=== PATIENT | male | born 1950 | race Caucasian/White ===

== ENCOUNTER 2025-02-17 12:02 | Outpatient (CLI) | payer OTHER, SELFPAY ==
[2025-02-17 12:02] VITALS: BMI 29.5
--- OUTSIDE RECORDS SUMMARY | 2025-02-17 12:17 | XMS_ITS | Encounter Summary ---
Author Organization Healthcare Address [address] [place] [address] Care Team Providers Care Service Associate Name Role Phone Kelly Hill APRN Primary Care Provider [phone] Reason for Visit * Reason Comments Med Refill Encounter Details Date Type Department Care Team (Late st Contact Info) Description 12/23/2024 Refill Family [facility] [address] [place] [address] Kelly Hill APRN [address] [place] [address] Social History Tobacco Use Types Packs/Day Years Used Date Smoking Tobacco: Former Cigarettes 0.3 20 1 970 - 1989 Passive Smoke Exposure: Current Smokeless Tobacco: Never Alcohol Use Standard Drinks/Week Comments Never 0 (1 standard drink = 0.6 oz pur e alcohol) Humiliation, Afraid, Rape, and Kick questionnair e Answer Date Recorded Within the last year, have y ou been afraid of your partner or ex-partner? No 12/15/2023 Within the last year, have y ou been humiliated or emotionally abused in other ways by your partner or ex-partner? No Within the last year, have y ou been kicked, hit, slapped, or otherwise physically hurt by your partner or ex-partner? No 12/15/2023 Within the last year, have y ou been raped or forced to have any kind of sexual activity by your partner or ex-partner? No 12/15/2023 PHQ-2 Answer Date Recorded Patient Health Questionnaire-2 Score 0 04/18/2024 Hunger Vital Sign Answer Date Recorded Within the past 12 months, y ou worried that your food would run out before you got the money to buy more. Never true 12/15/19 24 Within the past 12 months, t he food you bought just didn't last and you didn't have money to get more. Never true 12/15/2023 PRAPARE - Transportation Answer Date Re corded In the past 12 months, has l ack of transportation kept you from medical appointments or from getting medications? No 10/2023 In the past 12 months, has l ack of transportation kept you from meetings, work, or from getting things needed for daily living? No 12/15/2023 Housing Stability Vital Sign Answer Gwyn e Recorded In the last 12 months, was t here a time when you were not able to pay the mortgage or rent on time? No 12/15/2023 In the last 12 months, how many places have you lived? 1 12/15/2023 In the last 12 months, was t here a time when you did not have a steady place to sleep or slept in a skilled nursing (including now)? No 12/15/2023 Utilities Answer Date Recorded In the past 12 months has th e [employer], gas, oil, or water company threatened to shut off services in your home? No 12/15/2023 PHQ-2A Answer Date Recorded Patient Health Questionnaire-2 Score 0 12/23/2022 Sex and Gender Information Value Date Recorded Sex Assigned at Not on file Legal Sex Male 6:30 PM EDT Gender Identity Not on file Sexual Orientation Not on file documented as of this encounter Miscellaneous Notes * Telephone Encounter - Emily Noble, PharmD - 12/27/2024 8:37 AM EDT 1 medication(s) has been approved per protocol. documented in this encounter Plan of Treatment Not on file documented as of this encounter Visit Diagnoses Not on filedocumented in this encounter Additional Health Concerns Assessment Noted Time A fall risk assessment has been complete d for the patient 04/18/2024 2:35 PM EDT A Body Mass Index follow-up plan has been documented for the patient 04/18/2024 2:53 PM EDT documented as of this encounter Care Teams Service Associate Relationship Specialty Start Date End Date Kelly Hill APRN [address] [place] [phone] PCP - General 01/25/21 documented as of this encounter
--- OUTSIDE RECORDS SUMMARY | 2025-02-17 12:17 | XMS_ITS | Clinical Summary ---
Author Organization Healthcare Address [address] [place] [address] Care Team Providers Care Asthma Educator Name Role Phone Kelly Hill APRN Primary Care Provider Allergies No known active allergies Medications fexofenadine (Yesenia) 60 MG tablet Take 1 tablet (60 mg) by mouth 1 (one) time each day. Active Multiple Vitamin (multivitamin) capsule Take 1 capsule by mouth 1 (one) time each day. Active diclofenac (Voltaren) 75 MG EC tablet TAKE 1 TABLET BY MOUTH TWICE A DAY DO NOT CRUSH CHEW OR SPLIT 180 tablet 12/27/2024 Active Active Problems Problem Noted Date Diagnosed Date Chronic back pain 01/14/2021 Ulcer of left lower leg 01/14/2021 Function kidney decreased 12/18/2020 Encounters Date Type Department Care Team Description 02/15/2025 Orders Only External Location [address] [place] [address] [place] 12/23/2024 Refill Family [facility] [address] [place] [id number] Kelly Hill APRN from Last 3 Months Immunizations Immunization Administration Dates Next Due Influenza, high-dose, quadrivalent 07/12/2020 Rsvpref, Recombinant, Protein Subunit, Adjuvent 09/22/2023 Family History Medical History Relation Name Comments Colon cancer Father Conversions - Other Father Prostate hypertrophy Breast cancer Mother Relation Name Status Comments Father Mother Social History Tobacco Use Types Packs/Day Years Used Date Smoking Tobacco: Former Cigarettes 0.3 20 1 0 - 1989 Passive Smoke Exposure: Current Smokeless Tobacco: Never Tobacco Cessation:Counseling Given: Not Answered Alcohol Use Standard Drinks/Week Comments Never 0 [...] place to sleep or slept in a nursing home (including now)? No 12/15/2023 Utilities Answer Date Recorded In the past 12 months has e [employer], gas, oil, or water company threatened to shut off services in your home? No 12/15/2023 PHQ-2A Answer Date Recorded Patient Health Questionnaire-2 Score 0 12/23/2022 Sex and Gender Information Value Date Recorded Sex Assigned at Not on file Legal Sex Male 6:30 PM EDT Gender Identity Not on file Sexual Orientation Not on file Last Filed Vital Signs Vital Sign Reading Time Taken Comments Blood Pressure 110/78 04/18/2024 2:26 PM EDT Pulse 81 04/18/2024 2:26 PM EDT Temperature 36.8 C (98.2 F) 04/18/2024 2:26 PM EDT Respiratory Rate 16 10/28/2022 7:40 AM EST Oxygen Saturation 93% 04/18/2024 2:26 PM EDT Inhaled Oxygen Concentration - - Weight 94.2 kg (207 lb 11.2 oz) 04/18/2024 2:26 PM EDT Height 170.2 cm (5' 7 ) 04/18/2024 2:26 PM EDT Body Mass Index 32.53 04/18/2024 2:26 PM EDT Plan of Treatment Health Maintenance Due Date Last Done Comments [facility]-Hepatitis C Screening 1950 [facility]-Medicare Annual Wellness (AWV) 1950 [facility]-Infant/Child/Adol SDOH Screenings 1950 [facility]- SDOH Screenings 1970 [facility]-Adult SDOH Screenings 1970 [facility]-DTaP,Tdap,and Td Vaccines (1 - Tdap) 1971 CT Colonography 1997 Colonoscopy 1997 FIT 1997 FOBT 1997 Sigmoidoscopy 1997 [facility]-Zoster Vaccines (1 of 2) 2002 [facility]-Abdominal Aortic Aneurysm (AAA) Screening 2017 [id number] Vaccine ( season) 2024 12/28/2020, 11/30/2020 [facility]-Depression Screening 04/18/2025 04/18/2024 [facility]-Influenza Vaccine (Season Ended) 2025 07/12/2020 FIT-DNA 12/20/2026 12/21/2023 [facility]-Colorectal Cancer Screening 12/20/2026 [facility]-RSV Vaccine: 60+ Years or Completed 09/22/2023 [facility]-Pneumococcal Vaccine: 50+ Years Completed 02/12/2024 [facility]-Obesity Intervention Completed 024, 12/15/2023, 12/23/2022, Additional history exists HPV Vaccines Aged Out No longer eligi ble based on patient's age to complete this topic [facility]-HIB Vaccines Aged Out No longer e ligible based on patient's age to complete this topic [facility]-Hepatitis A Vaccines Aged Out No longer eligible based on patient's age to complete this topic [facility]-IPV Vaccines Aged Out No longer e ligible based on patient's age to complete this topic [facility]-Rotavirus Vaccines Aged Out No lo nger eligible based on patient's age to complete this topic Procedures Procedure Name Priority Date/Time Associated Diagnosis Comments CULTURE, BODY FLUID (EXTERNAL) Routine 02/15/2025 8:55 AM EDT BODY FLUID CELL COUNT MANUAL DIFF (NON-WAM) Routine 02/15/2025 8:55 AM EDT ANAEROBIC CULTURE Routine 02/15/2025 8:5 5 AM EDT GRAM STAIN Routine 02/15/2025 8:55 AM EDT LAB COLOGUARD COLON CANCER SCREEN Routine 12/21/2023 8:00 AM EDT Screening for colon cancer from Last 3 Months or Most Recently Relevant to Health Maintenance Results * Gram stain (02/15/2025 8:55 AM EDT) External Specimen Source SYNOVIAL [facility] External Gram Stain ID #1 POSITIVE [facility] External Morphology COCCI CLUSTERS [facility] External Quantitation #1 RARE [facility] External Gram Stain ID #2 POSITIVE [facility] External Morphology COCCI PAIRS [facility] External Quantitation #2 RARE [facility] External White Blood Cells MANY [facility] External Epithelial Cells NONE SEEN [facility] External Yeast NO YST SEEN [facility] EXTERNAL GRAM POSITIVE QC SLIDE PASS PASS [facility] EXTERNAL GRAM NEGATIVE QC SLIDE PASS PASS [facility] Synovium, biopsy or resection 02/15/2025 8:55 AM EDT 02/15/2025 11:46 AM EDT us Generic [place] Provider LAB MICROBIOLOGY - G ENERAL ORDERABLES Final Result Performing Organization Address City/[facility]/ZIP Co de Phone Number [facility] * (ABNORMAL) Body Fluid Cell Count w/ Diff (02/15/2025 8:55 AM EDT) External Specimen Source SYNOVIAL [facility] External Color Body Fluid YELLOW [facility] External Appearance-Body Fluid TURBID [facility] External RBC Body Fluid 03741 [facility] External WBC-Body Fluid 27573(H) 0 - 30 #/uL [facility] External Polys Body Fluid 96 % [facility] External Lymphocytes Body Fluid 3 % [facility] External Monocytes Body Fluid 1 % [facility] 02/15/2025 8:55 AM EDT 02/15/2025 11:46 AM EDT [facility] Provider LAB BODY FLUIDS AND STOOLS ORDERABLES Final Result Performing Organization Address [facility] Co de Phone Number [facility] * Cologuard?? colon cancer screening (12/21/2023 8:00 AM EDT) Cologuard Negative Negative 12/27/2023 12:11 AM EDT [facility] (CLIA #:[id number]) Comment: NEGATIVE TEST RESULT. A negative Cologuard result indicates a low likelihood that a colorectal cancer (CRC) or advanced adenoma (adenomatous polyps with more advanced pre-malignant features) is present. The chance that a person with a negative Cologuard test has a colorectal cancer is less than 1 in 1500 (negative predictive value >99.9%) or has an advanced adenoma is less than 5.3% (negative predictive value 94.7%). These data are based on a prospective cross-sectional study of 10,000 individuals at average risk for colorectal cancer who were screened with both Cologuard and colonoscopy. (Rudolph Weaver al, N Engl J Med 2014;370(14):5188-3345) The normal value (reference range) for this assay is negative. COLOGUARD RE-SCREENING RECOMMENDATION: Periodic colorectal cancer screening is an important part of preventive healthcare for asymptomatic individuals at average risk for colorectal cancer. Following a negative Cologuard result, the [place] [employer] Society and U.S. Multi-Society Task Force screening guidelines recommend a Cologuard re-screening interval of 3 years. References: [place] [employer] Guideline for Colorectal Cancer Screening: https://www.cancer.org/cancer/etwtp-gzikct-ligqrl/sldrmxnaf-iafmamzac-fuychzr/ac s-rec ommendations.html.; Rosalio DK, Edith HELM, Chiara PuentesK, Colorectal Cancer Screening: Recommendations for Physicians and Patients from the U.S. Multi-Society Task Force on Colorectal Cancer Screening , Am J Gastroenterology 2017; 112:4370-9623. TEST DESCRIPTION: Composite algorithmic analysis of stool DNA-biomarkers with hemoglobin immunoassay. Quantitative values of individual biomarkers are not reportable and are not associated with individual biomarker result reference ranges. Cologuard is intended for colorectal cancer screening of adults of either sex, 45 years or older, who are at average-risk for colorectal cancer (CRC). Cologuard has been approved for use by the U.S. FDA. The performance of Cologuard was established in a cross sectional study of average-risk adults aged 50-84. Cologuard performance in patients ages 45 to 49 years was estimated by sub-group analysis of near-age groups. Colonoscopies performed for a positive result may find as the most clinically significant lesion: colorectal cancer [4.0%], advanced adenoma (including sessile serrated polyps greater than or equal to 1cm diameter) [20%] or non- advanced adenoma [31%]; or no colorectal neoplasia [45%]. These estimates are derived from a prospective cross-sectional screening study of 10,000 individuals at average risk for colorectal cancer who were screened with both Cologuard and colonoscopy. (Rudolph Weaver al, N Engl J Med 2014;370(14):8066-6221.) Cologuard may produce a false negative or false positive result (no colorectal cancer or precancerous polyp present at colonoscopy follow up). A negative Cologuard test result does not guarantee the absence of CRC or advanced adenoma (pre-cancer). The current Cologuard screening interval is every 3 years. ([place] [employer] and U.S. Multi-Society Task Force). Cologuard performance data in a 10,000 patient pivotal study using colonoscopy as the reference method can be accessed at the following location: www.[employer]/results. Additional description of the Cologuard test process, warnings and precautions can be found at www.cologuard.com. Stool specimen (specimen) 12/21/2023 8:00 AM EDT 12/22/2023 11:02 AM EDT Kelly Hill APRN LAB MOLECULAR DIAGNOSTICS O RDERABLES Final Result [facility] (CLIA #:[id number]) [address] [place] [id number], from Last 3 Months or Most Recently Relevant to Health Maintenance Insurance [facility] MEDICARE Care Teams Asthma Educator Relationship Specialty Start Date End Date Kelly Hill APRN [address] [place] [address] PCP - General 01/25/21
--- OUTSIDE RECORDS SUMMARY | 2025-02-17 12:17 | XMS_ITS | Data Portability ---
Author Organization SANIYA - RORY Steiner HENRIET[facility] CLOSED Address [address] [place] [address] Care Team Providers Care Fisher Reef Net Name Role Phone GOMEZCARLOTA Referring Provider [phone] Assessment Encounter Date Assessment Date Assessment LastModified by Organization Details LastModified Time 10/17/2024 10/17/2024 74-year-old female with history of benign prostatic hyperplasia presenting with follow-up for medication management and assessment of need for updated diagnostic testing. The patient has shown symptomatic improvement with alfuzosin therapy. There is a notable family history of prostate cancer, raising consideration for routine PSA monitoring due to the elapsed time since the last test. Benign Prostatic Hyperplasia: Continue alfuzosin therapy as the patient reports symptomatic improvement. Discuss timely PSA testing given over a year since last screening due to family history of prostate cancer. [id number] Not available 10/18/2024 12:55:03 Plan of Treatment Reminders Order Date Submit Date Provider Last Modified By Organization Details Last Modified Time Details Appointments RECHECK 2025 01:45P Nya VAZQUEZ MD Not available Not available Not available Lab urinalysi s panel, auto 2024 025 [facility], [address], [address], [place], [address], 10/18/2024 14:47:53 urinalysi s panel, auto 2023 024 [facility], [address], [address], [place], [address], 04/24/2024 09:48:46 urinalysi s panel, auto 2023 [facility] [place] [facility], [address], [address], [place], [address], 02/22/2024 18:14:53 culture, urine 2023 [facility], [address] [place] [address], [address], 02/23/2024 11:52:05 Referral None recorded. Procedures None recorded. Surgeries None recorded. Imaging None recorded. Medication Orders alfuzosin ER 10 mg tablet,ex tended release 24 hr 2023 [employer] [id number], [address], [place], [address], 02/22/2024 13:34:59 Patient TargetsNo targets recorded. Patient Instructions Encounter Date Encounter Id Patient Instructions Last Modified By Organization Details Last Modified Time 04/18/2024 [id number] learning about healthy [facility] Not available 04/24/2024 09:48:45 10/17/2024 [id number] learning about healthy weight [facility] Not available 10/18/2024 14:47:52 - Continue takin g alfuzosin as directed. - Schedule a PSA test soon since it's been over a year since your last one. - Monitor urinary symptoms, especially any changes in urgency, frequency, or leakage. - Contact our office if symptoms worsen or concerns arise regarding urinary health or treatment. [email or web address] Not available 10/18/2024 12:55:06 Reason for Referral None Reported. Results Created Date Observation Date Name Description Value Unit Range Abnormal Flag Note LastModifiedBy Organization Detail LastModifiedTime 02/22/2002/24/2024 URINE CULTU RE urine culture No growth day 2. Not Available [facility] [address] [place] [address], [address], 02/24/2024 13:10:30 02/22/20 24 02/22/2024 urina lysis panel , auto Unknown Analyte Clean Catch Not Available [facility] [place] [facility] [address], [place], [address], 02/22/2024 12:46:21 02/22/20 24 02/22/2024 urina lysis panel , auto Unknown Analyte Yellow Not Available [facility] [place] [facility] [address], [place], [address], 02/22/2024 12:46:21 02/22/2002/22/2024 urina lysis panel , auto Unknown Analyte Clear Not Available [facility] [place] [facility] [address], [place], [address], 02/22/2024 12:46:21 02/22/20 24 02/22/2024 urina lysis panel , auto Unknown Analyte 1.020 Not Available [facility] Services With [facility] [address], [place], [address], 02/22/2024 12:46:21 02/22/20 24 02/22/2024 urina lysis panel , auto Unknown Analyte 1.003- 1.035 Not Available [facility] [place] [facility] [address], [place], [address], 02/22/2024 12:46:21 02/22/20 24 02/22/2024 urina lysis panel , auto Unknown Analyte 5.0 Not Available [facility] [place] [facility] [address], [place], [address], 02/22/2024 12:46:21 02/22/20 24 02/22/2024 urina lysis panel , auto Unknown Analyte 5.0-8. 0 Not Available [facility] [place] [facility] [address], [place], [address], 02/22/2024 12:46:21 02/22/20 24 02/22/2024 urina lysis panel , auto Unknown Analyte 25 Danitza/ul Trace Not Available [facility] [place] [facility] [address], [place], [address], 02/22/2024 12:46:21 02/22/20 24 02/22/2024 urina lysis panel , auto Unknown Analyte Negati ve Not Available [facility] [place] [facility] [address], [place], [address], 02/22/2024 12:46:21 02/22/20 24 02/22/2024 urina lysis panel , auto Unknown Analyte POSITI VE (Abnor mal) Not Available [facility] [place] [facility] [address], [place], [address], 02/22/2024 12:46:21 02/22/20 24 02/22/2024 urina lysis panel , auto Unknown Analyte Negati ve Not Available [facility] [place] [facility] [address], [place], [address], 02/22/2024 12:46:21 02/22/20 24 02/22/2024 urina lysis panel , auto Unknown Analyte Trace Not Available [facility] [place] [facility] [address], [place], [address], 02/22/2024 12:46:21 02/22/20 24 02/22/2024 urina lysis panel , auto Unknown Analyte Negati ve Not Available [facility] [place] [facility] [address], [place], [address], 02/22/2024 12:46:21 02/22/20 24 02/22/2024 urina lysis panel , auto Unknown Analyte Normal Not Available [facility] Services With [facility] [address], [place], [address], 02/22/2024 12:46:21 02/22/20 24 02/22/2024 urina lysis panel , auto Unknown Analyte Normal Not Available [facility] [address], [place], [address], 02/22/2024 12:46:21 02/22/20 24 02/22/2024 urina lysis panel , auto Unknown Analyte Negati ve Not Available [facility] Services With [facility] [address], [place], [address], 02/22/2024 12:46:21 02/22/20 24 02/22/2024 urina lysis panel , auto Unknown Analyte Negati ve Not Available [facility] [address], [place], [address], 02/22/2024 12:46:21 02/22/20 24 02/22/2024 urina lysis panel , auto Unknown Analyte 4 mg/dl Not Available [facility] [place] [facility] [address], [place], [address], 02/22/2024 12:46:21 02/22/20 24 02/22/2024 urina lysis panel , auto Unknown Analyte Normal 1 mg/dl Not Available [facility] [place] [facility] [address], [place], [address], 02/22/2024 12:46:21 02/22/20 24 02/22/2024 urina lysis panel , auto Unknown Analyte Negati ve Not Available [facility] [place] [facility] With [place] [address], [place], [address], 02/22/2024 12:46:21 02/22/20 24 02/22/2024 urina lysis panel , auto Unknown Analyte Negati ve Not Available [facility] Services With [place] [address], [place], [address], 02/22/2024 12:46:21 02/22/20 24 02/22/2024 urina lysis panel , auto Unknown Analyte Negati ve Not Available [facility] Services With [place] [address], [place], [address], 02/22/2024 12:46:21 02/22/20 24 02/22/2024 urina lysis panel , auto Unknown Analyte Negati ve Not Available [facility] [place] [facility] [place] [address], [place], [address], 02/22/2024 12:46:21 04/18/20 24 04/18/2024 urina lysis panel , auto Unknown Analyte Clean Catch Not Available [facility] [place] [facility] [place] [address], [place], [address], 04/18/2024 13:38:18 04/18/20 24 04/18/2024 urina lysis panel , auto Unknown Analyte Yellow Not Available [facility] [place] [facility] [place] [address], [place], [address], 04/18/2024 13:38:18 04/18/20 24 04/18/2024 urina lysis panel , auto Unknown Analyte Clear Not Available [facility] Services With [place] [address], [place], [address], 04/18/2024 13:38:18 04/18/20 24 04/18/2024 urina lysis panel , auto Unknown Analyte 1.025 Not Available [facility] With [place] [address], [place], [address], 04/18/2024 13:38:18 04/18/20 24 04/18/2024 urina lysis panel , auto Unknown Analyte 1.003- 1.035 Not Available [facility] [place] [facility] [place] [address], [place], [address], 04/18/2024 13:38:18 04/18/20 24 04/18/2024 urina lysis panel , auto Unknown Analyte 5.0 Not Available [facility] With [place] [address], [place], [address], 04/18/2024 13:38:18 04/18/20 24 04/18/2024 urina lysis panel , auto Unknown Analyte 5.0-8. 0 Not Available [facility] [place] [facility] [place] [address], [place], [address], 04/18/2024 13:38:18 04/18/20 24 04/18/2024 urina lysis panel , auto Unknown Analyte Negati ve Not Available [facility] [place] [facility] [place] [address], [place], [address], 04/18/2024 13:38:18 04/18/20 24 04/18/2024 urina lysis panel , auto Unknown Analyte Negati ve Not Available [facility] [place] [facility] [address], [place], [address], 04/18/2024 13:38:18 04/18/20 24 04/18/2024 urina lysis panel , auto Unknown Analyte Negati ve Not Available [facility] [place] [facility] [address], [place], [address], 04/18/2024 13:38:18 04/18/20 24 04/18/2024 urina lysis panel , auto Unknown Analyte Negati ve Not Available [facility] [place] [facility] [address], [place], [address], 04/18/2024 13:38:18 04/18/20 24 04/18/2024 urina lysis panel , auto Unknown Analyte 30 mg/dl (+) Not Available [facility] [place] [facility] [address], [place], [address], 04/18/2024 13:38:18 04/18/20 24 04/18/2024 urina lysis panel , auto Unknown Analyte Negati ve Not Available [facility] [place] [facility] [address], [place], [address], 04/18/2024 13:38:18 04/18/20 24 04/18/2024 urina lysis panel , auto Unknown Analyte Normal Not Available [facility] [place] [facility] [place] [address], [place], [address], 04/18/2024 13:38:18 04/18/20 24 04/18/2024 urina lysis panel , auto Unknown Analyte Normal Not Available [facility] [place] [facility] [address], [place], [address], 04/18/2024 13:38:18 04/18/20 24 04/18/2024 urina lysis panel , auto Unknown Analyte 15 mg/dl (Sm) Not Available [facility] [place] [facility] [address], [place], [address], 04/18/2024 13:38:18 04/18/20 24 04/18/2024 urina lysis panel , auto Unknown Analyte Negati ve Not Available [facility] [address], [place], [address], 04/18/2024 13:38:18 04/18/20 24 04/18/2024 urina lysis panel , auto Unknown Analyte 4 mg/dl Not Available [facility] [address], [place], [address], 04/18/2024 13:38:18 04/18/20 24 04/18/2024 urina lysis panel , auto Unknown Analyte Normal 1 mg/dl Not Available [facility] [place] [facility] [address], [place], [address], 04/18/2024 13:38:18 04/18/20 24 04/18/2024 urina lysis panel , auto Unknown Analyte Negati ve Not Available [facility] [place] [facility] [address], [place], [address], 04/18/2024 13:38:18 04/18/20 24 04/18/2024 urina lysis panel , auto Unknown Analyte Negati ve Not Available [facility] [place] [facility] [address], [place], [address], 04/18/2024 13:38:18 04/18/20 24 04/18/2024 urina lysis panel , auto Unknown Analyte Negati ve Not Available [facility] [place] [facility] [address], [place], [address], 04/18/2024 13:38:18 04/18/20 24 04/18/2024 urina lysis panel , auto Unknown Analyte Negati ve Not Available [facility] [place] [facility] [address], [place], [address], 04/18/2024 13:38:18 10/17/19 25 10/17/2024 urina lysis panel , auto Unknown Analyte Clean Catch Not Available [facility] [address], [place], [address], 10/17/2024 15:38:29 10/17/19 25 10/17/2024 urina lysis panel , auto Unknown Analyte Yellow Not Available [facility] [address], [place], [address], 10/17/2024 15:38:29 10/17/19 25 10/17/2024 urina lysis panel , auto Unknown Analyte Clear Not Available [facility] [address], [place], [address], 10/17/2024 15:38:29 10/17/19 25 10/17/2024 urina lysis panel , auto Unknown Analyte 1.020 Not Available [facility] [place] [facility] [address], [place], [address], 10/17/2024 15:38:29 10/17/19 25 10/17/2024 urina lysis panel , auto Unknown Analyte 1.003- 1.035 Not Available [facility] [place] [facility] [address], [place], [address], 10/17/2024 15:38:29 10/17/19 25 10/17/2024 urina lysis panel , auto Unknown Analyte 6.0 Not Available [facility] [address], [place], [address], 10/17/2024 15:38:29 10/17/19 25 10/17/2024 urina lysis panel , auto Unknown Analyte 5.0-8. 0 Not Available [facility] [address], [place], [address], 10/17/2024 15:38:29 10/17/19 25 10/17/2024 urina lysis panel , auto Unknown Analyte Negati ve Not Available [facility] [place] [facility] [address], [place], [address], 10/17/2024 15:38:29 10/17/19 25 10/17/2024 urina lysis panel , auto Unknown Analyte Negati ve Not Available [facility] [place] [facility] [address], [place], [address], 10/17/2024 15:38:29 10/17/19 25 10/17/2024 urina lysis panel , auto Unknown Analyte Negati ve Not Available [facility] [place] [facility] [address], [place], [address], 10/17/2024 15:38:29 10/17/19 25 10/17/2024 urina lysis panel , auto Unknown Analyte Negati ve Not Available [facility] [place] [facility] [address], [place], [address], 10/17/2024 15:38:29 10/17/19 25 10/17/2024 urina lysis panel , auto Unknown Analyte Negati ve Not Available [facility] [place] [facility] [address], [place], [address], 10/17/2024 15:38:29 10/17/19 25 10/17/2024 urina lysis panel , auto Unknown Analyte Negati ve Not Available [facility] [place] [facility] [address], [place], [address], 10/17/2024 15:38:29 10/17/19 25 10/17/2024 urina lysis panel , auto Unknown Analyte Normal Not Available [facility] [address], [place], [address], 10/17/2024 15:38:29 10/17/19 25 10/17/2024 urina lysis panel , auto Unknown Analyte Normal Not Available [facility] [address], [place], [address], 10/17/2024 15:38:29 10/17/19 25 10/17/2024 urina lysis panel , auto Unknown Analyte Negati ve Not Available [facility] [place] [facility] [address], [place], [address], 10/17/2024 15:38:29 10/17/19 25 10/17/2024 urina lysis panel , auto Unknown Analyte Negati ve Not Available [facility] [place] [facility] [address], [place], [address], 10/17/2024 15:38:29 10/17/19 25 10/17/2024 urina lysis panel , auto Unknown Analyte 4 mg/dl Not Available [facility] [address], [place], [address], 10/17/2024 15:38:29 10/17/19 25 10/17/2024 urina lysis panel , auto Unknown Analyte Normal 1 mg/dl Not Available [facility] [place] [facility] [address], [place], [address], 10/17/2024 15:38:29 10/17/19 25 10/17/2024 urina lysis panel , auto Unknown Analyte Negati ve Not Available [facility] [place] [facility] [address], [place], [address], 10/17/2024 15:38:29 10/17/19 25 10/17/2024 urina lysis panel , auto Unknown Analyte Negati ve Not Available [facility] [place] [facility] [address], [place], [address], 10/17/2024 15:38:29 10/17/19 25 10/17/2024 urina lysis panel , auto Unknown Analyte Negati ve Not Available [facility] [place] [facility] [address], [place], [address], 10/17/2024 15:38:29 10/17/19 25 10/17/2024 urina lysis panel , auto Unknown Analyte Negati ve Not Available [facility] [place] [facility] [address], [place], [address], 10/17/2024 15:38:29 Result Notes None recorded. Problems Name Problem SNOMED Code Status Onset Date Resolution Date Notes Provider Name and Address Organization Details Recorded Time Benign prostatic hyperplasia with outflow obstruction 378809965 Active 2023 CRISTO VAZQUEZ JR, MD [address] [place] [address], [address], [facility] 4 13:33:51 Lower urinary tract symptoms due to benign prostatic hypertrophy 3135674467897 1 Active 2024 CRISTO VAZQUEZ JR, MD [address] [place] [address], [address], [facility] 5 14:47:38 Problem Notes None recorded. Procedures Surgical History Date Name Laterality Status Provider Name and Address Organization Details Recorded Time procedure on hip completed Angela Muñoz [facility] 02/22/2024 12:45:27 Imaging Results None recorded. Procedure Notes None recorded. Medical Equipment None Reported. Allergies No known drug allergies Medications Name Sig Start Date Stop Date Status Note LastModified by Organization Details LastModified Time aspirin 325 mg tablet TAKE 1 TABLET BY MOUTH EVERY DAY active Not Available Not Available No t Available tramadol 50 mg tablet TAKE 1 TABLET MOUTH EVERY 6HRS NEEDED FOR PAIN active Not Available Not Available No t Available oxycodone-ac etaminophen 5 mg-325 mg tablet 1 TABLET BY MOUTH EVERY FOUR HOURS NEEDED FOR MODERATE PAIN: 4-6 PAIN SCALE active Not Available Not Available N ot Available cephalexin 500 mg capsule TAKE 1 CAPSULE BY MOUTH FOUR TIMES A DAY active Not Available Not Available Not Available diclofenac sodium 75 mg tablet,delay ed release TAKE 1 TABLET BY MOUTH TWICE A DAY DO NOT CRUSH CHEW OR SPLIT active Not Available Not Available No t Available enoxaparin 40 mg/0.4 mL subcutaneous syringe INJECT 40 MILLIGRAM SUBCUTANEOU S ONCE DAILY active Not Available Not Available No t Available alfuzosin ER 10 mg tablet,exten ded release 24 hr TAKE 1 TABLET BY MOUTH EVERY DAY 2024 active Not Available Not Available Not Avai lable B Complex active Not Available Not Daniella ilable Not Available Yesenia active Not Available Not Avail able Not Available Senexon-S 8.6 mg-50 mg tablet 1 TABLET BY MOUTH TWICE A DAY NEEDED FOR CONSTIPATIO N active Not Available Not Available No t Available Vitals Date Recorded Body height Body mass index (BMI) Body weight Provider Name and Address Organization Details Last Updated DateTime 10/17/2024 172.72 cm 31.9 kg/m2 80491.4 g Consuelo Mckenzie [facility] 10/17/2024 15:27:14 Date Recorded Body height Body mass index (BMI) Body weight Provider Name and Address Organization Details Last Updated DateTime 02/22/2024 172.72 cm 31.8 kg/m2 05712.81 g Angela Toni [facility] 02/22/2024 12:44:23 Date Recorded Body height Body mass index (BMI) Body weight Provider Name and Address Organization Details Last Updated DateTime 04/18/2024 172.72 cm 31.6 kg/m2 97269.49 [facility] 13:36:59 Social History Question Answer Notes LastModified by Organizat ion Details LastModified Time Tobacco Smoking Status Never Smoker Angela Hilarioson [facility] 02/22/2024 12:45:13 What Was The Date Of Your Most Recent Tobacco Screening? 10/17/2024 [email or web address] Information not available 10/17/2024 What Is Your Relationship Status? Information not available 02/22/2024 Sex: Unknown Functional Status Question Answer Note LastModified by Organization D etails LastModified Time What is your level of alcohol consumption? None [email or web address] Information not available 02/22/2024 Mental Status None recorded. Family History Relationship Description Onset Age of this Age Resolved Age Notes LastModified by Organization Details LastModified Time Sister Diabetes mellitus [email or web address] Not available 2023 12:44:54 Father Family history of malignant neoplasm prosta te cancer [email or web address] Not available 02/22/2024 12:45:05 Medical History Condition Response Allergies/Hayfever Y False Teeth Y Asthma Y Past Encounters Encounter ID Performer Location Encounter Start Date Encounter Closed Date Diagnosis/Indication Diagnosis SNOMED-CT Code Diagnosis ICD10 Code Diagnosis Note [id number] CRISTO VAZQUEZ JR, MD [facility] [address] [facility] [address] [facility], [id number] 02/22/2024 12:42:48 02/22/2024 13:30:41 Urinary tract infectious disease 37158963 N39.0 Benign pro static hyperplasia with outflow obstruction 730886889 N13.8 [id number] CRISTO VAZQUEZ JR, MD [facility] [address] [facility] [address] [place] [address], [id number] 04/18/2024 13:12:17 04/18/2024 14:26:45 Benign prostatic hyperplasia with outflow obstruction 078309469 N13.8 [id number] CRISTO VAZQUEZ JR, MD [facility] [address] [facility] [address] [facility], [id number] 8 10/17/2024 14:19:50 10/17/2024 16:47:10 Lower urinary tract symptoms due to benign prostatic hypertrophy [id number] 9101 N40.1 Health Concerns Section Related Observation LastModified by Organization Detai ls LastModified Time None Recorded Concern Status LastModified by Organization Details LastModified Time None Recorded Advance Directives Directive None Recorded Payers Insurance Date Sequence Insurance Name Policy Number Policy Yan Covered Member ID Yan Member ID Guarantor Name 11/02/2024 1 [employer] (MEDICARE REPLACEMENT/A DVANTAGE - PPO) Nacho Thornton [id number] Nacho Thornton Notes Date Note Type Note Provider Name and Address Organization Details Recorded Time 02/22/2024 text/html Patient is in today with increased lower urinary track symptoms. He has post void dribbling. He reports nocturia 2 to 3 times with diminished urine stream. He denies him. He denies this year. He does have father with prostate cancer. He denies any history of prostate surgery. He's not been treated with BPH medication. CRISTO VAZQUEZ JR, MD [address] [place] [address] [place], [phone], [facility] 02/27/2024 11:19:00 04/18/2024 text/html Patient is in today with increased lower urinary track symptoms. He has post void dribbling. He reports nocturia 2 to 3 times with diminished urine stream. He denies him. He denies this year. He does have father with prostate cancer. He denies any history of prostate surgery. He's not been treated with BPH medication. Significant improvement with alfuzosin CRISTO VAZQUEZ JR, MD [address] [place] [address], [phone], [facility] 04/24/2024 09:48:48 10/17/2024 text/html The patient is a 74-year-old female presenting with a history of benign prostatic hyperplasia (BPH). The patient has been on alpha-kvng therapy with alfuzosin and reports improvement in urinary symptoms, including reduced nocturia and decreased urinary urgency throughout the day. However, the urgency is still notable in the morning. While on the current medication, the patient experiences fewer instances of nocturnal awakening and leakage. The patient has a paternal family history of prostate cancer and has had PSA tests in the past, though it has been more than a year since the last test was conducted. CRISTO VAZQUEZ JR, MD [address] [place] [address] [place], [phone], [facility] 10/18/2024 14:47:55
--- OUTSIDE RECORDS SUMMARY | 2025-02-17 12:17 | XMS_ITS | Encounter Summary ---
Author Organization Healthcare Address [address] [place] [address] Care Team Providers Care Call Center Agent Name Role Phone Kelly Hill APRN Primary Care Provider Encounter Details Date Type Department Care Team (Late st Contact Info) Description 02/15/2025 Orders Only External Location [address] [place] [id number] Provider, Manoj Sherwood Social History Tobacco Use Types Packs/Day Years [...] place to sleep or slept in a half-way (including now)? No 12/15/2023 Utilities Answer Date Recorded In the past 12 months has th e electric, gas, oil, or water company threatened to shut off services in your home? No 12/15/2023 PHQ-2A Answer Date Recorded Patient Health Questionnaire-2 Score 0 12/23/2022 Sex and Gender Information Value Date Recorded Sex Assigned at Not on file Legal Sex Male 6:30 PM EDT Gender Identity Not on file Sexual Orientation Not on file documented as of this encounter Plan of Treatment Pending Results Name Type Priority Associated Diagnoses Date /Time Culture, Body Fluid (External) Lab Routine 02/15/2025 8:55 AM EDT Anaerobic Culture Microbiology Routine 02/15 8:55 AM EDT documented as of this encounter Procedures Procedure Name Priority Date/Time Associated Diagnosis Comments CULTURE, BODY FLUID (EXTERNAL) Routine 02/15/2025 8:55 AM EDT GRAM STAIN Routine 02/15/2025 8:55 AM EDT ANAEROBIC CULTURE Routine 02/15/2025 8:5 5 AM EDT BODY FLUID CELL COUNT MANUAL DIFF (NON-WAM) Routine 02/15/2025 8:55 AM EDT documented in this encounter Results * (ABNORMAL) Body Fluid Cell Count w/ Diff (02/15/2025 8:55 AM EDT) External Specimen Source SYNOVIAL [facility] External Color Body Fluid YELLOW [facility] External Appearance-Body Fluid TURBID [facility] External RBC Body Fluid 41392 [facility] External WBC-Body Fluid 85103(H) 0 - 30 #/uL [facility] External Polys Body Fluid 96 % [facility] External Lymphocytes Body Fluid 3 % [facility] External Monocytes Body Fluid 1 % [facility] 02/15/2025 8:55 AM EDT 02/15/2025 11:46 AM EDT us Generic Sherwood Provider LAB BODY FLUIDS AND STOOLS ORDERABLES Final Result [facility] * Gram stain (02/15/2025 8:55 AM EDT) External Specimen Source SYNOVIAL [facility] External Gram Stain ID #1 POSITIVE [facility] External Morphology [facility] External Quantitation #1 RARE [facility] External Gram Stain ID #2 POSITIVE [facility] External Morphology [facility] External Quantitation #2 RARE [facility] External White Blood Cells MANY [facility] External Epithelial Cells NONE SEEN [facility] External Yeast NO YST SEEN [facility] EXTERNAL GRAM POSITIVE QC SLIDE PASS PASS [facility] EXTERNAL GRAM NEGATIVE QC SLIDE PASS PASS [facility] Synovium, biopsy or resection 02/15/2025 8:55 AM EDT 02/15/2025 11:46 AM EDT us Generic Sherwood Provider LAB MICROBIOLOGY - G ENERAL ORDERABLES Final Result [facility] documented in this encounter Visit Diagnoses Not on filedocumented in this encounter Additional Health Concerns Assessment Noted Time A fall risk assessment has been complete d for the patient 04/18/2024 2:35 PM EDT A Body Mass Index follow-up plan has been documented for the patient 04/18/2024 2:53 PM EDT documented as of this encounter Care Teams Call Center Agent Relationship Specialty Start Date End Date Kelly Hill [facility] [address] [place] [address] PCP - General 01/25/21 documented as of this encounter
--- NOTE | 2025-02-17 13:12 | XR_ITS ---
FINAL REPORT CLINICAL HISTORY: picc line placement FINDINGS: A portable view of the chest was obtained. Cardiac and mediastinal silhouettes are within normal limits. The lungs are clear. Left PICC line tip terminates in the SVC. There is no pleural effusion or pneumothorax. IMPRESSION: Left PICC line terminates at the SVC. Reviewed, Interpreted and Dictated by Taya De Jesus MD Transcribed by Sonya Pacheco Authenticated and . [facility]
== END 2025-02-17 23:59 | disposition home or self-care (01) ==
PROVIDERS: PCP Nurse Practitioner Family; Visit Provider Internal Medicine
DX: Z45.2 Encounter for adjustment and management of vascular access device (principal)
CPT/HCPCS: 36569; 71045; C1751